=== PATIENT | female | born 1985 | race Caucasian/White ===

== ENCOUNTER 2017-10-12 12:02 | Emergency (ER) | payer MEDICAID ==
[~2017-10-12] VITALS: Ht 172.7 cm; Wt 61.4 kg
[~2017-10-12 12:02] MED LIST: NO HOME MEDICATIONS; PRENATE ELITE1 TA3 PO
[2017-10-12 12:33] LABS: EOS % 0.3 % (1.0-5.0); HEMATOCRIT 39.8 % (37.0-47.0); HEMOGLOBIN 13.8 g/dL (12.5-16.0); LYMPH# 1.6 (1.50-4.00); MEAN CELL VOLUME 86 fl (78-100); MEAN CORPUSCULAR HEMOGLOBIN 30 pg (27-31); MEAN CORPUSCULAR HGB CONC 35 g/dL (33-37); MEAN PLATELET VOLUME 10.4 fl (7.4-10.4); MONO # 0.9 (0.20-0.80); PLATELET COUNT 251 K/mm3 (130-400); RED BLOOD COUNT 4.64 M/mm3 (4.10-5.30); RED CELL DISTRIBUTION WIDTH 13.2 % (11.5-14.5); WHITE BLOOD COUNT 10.6 K/mm3 (4.8-10.8)
[2017-10-12 12:47] LABS: CALCIUM 9.9 mg/dL (8.4-10.2); POTASSIUM 3.3 mmol/L (3.6-5.0); TOTAL PROTEIN 7.1 g/dL (6.3-8.2)
[2017-10-12 13:52] LABS: URINE APPEARANCE CLEAR; URINE BILIRUBIN NEGATIVE (NEGATIVE); URINE BLOOD NEGATIVE (NEGATIVE); URINE COLOR YELLOW; URINE GLUCOSE NEGATIVE (NEGATIVE); URINE KETONE SMALL (NEGATIVE); URINE LEUKOCYTE ESTERASE NEGATIVE (NEGATIVE); URINE NITRATE NEGATIVE (NEGATIVE); URINE PROTEIN(semi-quant) TRACE mg/dL (NEGATIVE); URINE UROBILINOGEN NORMAL (NORMAL); URINE WBC 0-1 /hpf (0-3)
[2017-10-12] MEDS ORDERED: ZOFRAN ODT4 MG PO (15:09)
[2017-10-12 15:19] VITALS: BP 150/103
== END 2017-10-12 15:18 | disposition home or self-care (01) ==
LOC: ED 12:02
PROVIDERS: Physician Assistant
DX: O21.9 Vomiting of pregnancy, unspecified (principal); Z3A.10 10 weeks gestation of pregnancy
CPT/HCPCS: J2405; J7120

== ENCOUNTER 2018-07-13 18:27 | Emergency (ER) | payer SELFPAY ==
[~2018-07-13 18:27] MED LIST changes: +ZOFRAN ODT4 MG PO
[2018-07-13] MEDS ORDERED: ORTHO TRI-CYCLE1 TA1 PO (18:39)
[2018-07-13] MEDS ORDERED: AMOXIL500 M1 PO (19:11)
[2018-07-13 19:18] VITALS: BP 159/108
== END 2018-07-13 19:18 | disposition home or self-care (01) ==
LOC: ED 18:27
DX: J02.0 Streptococcal pharyngitis (principal); I10 Essential (primary) hypertension

== ENCOUNTER 2021-10-25 10:57 | Emergency (ER) | payer OTHER, MEDICAID ==
[~2021-10-25] VITALS: Ht 172.7 cm; Wt 62.3 kg
[~2021-10-25 10:57] MED LIST changes: +AMOXIL500 M1 PO; +ORTHO TRI-CYCLE1 TA1 PO
[2021-10-25] MEDS ORDERED: LABETALOL HCL300 M1 PO (11:43)
[2021-10-25 14:18] VITALS: BP 188/119
== END 2021-10-25 14:16 | disposition home or self-care (01) ==
LOC: ED 10:57
DX: S20.219A Contusion of unspecified front wall of thorax, initial encounter (principal); S80.12XA Contusion of left lower leg, initial encounter; Z98.890 Other specified postprocedural states; V89.2XXA Person injured in unspecified motor-vehicle accident, traffic, initial encounter